=== PATIENT | female | born 1980 | race Caucasian/White ===

== ENCOUNTER 2019-12-26 10:30 | Outpatient (CLI) | payer OTHER, SELFPAY ==
--- NOTE | 2019-12-26 10:30 | MM_ITS ---
WS: [id number] BILATERAL SCREENING DIGITAL MAMMOGRAM WITH CAD HISTORY: screening COMPARISON: None available. Bilateral CC and MLO views submitted. Computer aided detection analyzed. Breast composition: The breasts are heterogeneously dense, which may obscure small masses. No suspici ous masses, microcalcifications or architectural distortion. Benign calcifications in each breast. MM/[place] [id number] IMPRESSION: BI-RADS: 2-Benign FOLLOW UP: 1 Year Follow-up
== END 2019-12-26 10:31 | disposition home or self-care (01) ==
LOC: RADSHAW 10:33
PROVIDERS: PCP Family Medicine; Visit Provider Obstetrics & Gynecology
DX: Z12.31 Encounter for screening mammogram for malignant neoplasm of breast (principal)
CPT/HCPCS: 77067

== ENCOUNTER 2021-02-06 07:55 | Outpatient (CLI) | payer OTHER, SELFPAY ==
--- NOTE | 2021-02-06 08:00 | MM_ITS ---
WS: [id number] Bilateral screening digital mammogram, 02/06/2021 Clinical Data: Z12.39 - Encounter for other screening for malignant neop... Comparison: 12/26/2019. Findings: The breast parenchymal pattern shows heterogeneous density No spiculated masses or clustered calcific ations are seen. There are no secondary signs of carcinoma. MM/[place] [id number] Impression: 1. Negative bilateral mammogram unchanged. 2. Recommend annual screening mammograms. BIRADS: 1-Negative FOLLOW UP: 1 Year Follow-up The CAD pattern checker was used.
== END 2021-02-06 07:56 | disposition home or self-care (01) ==
LOC: RADSHAW 07:58
PROVIDERS: PCP Family Medicine; Visit Provider Obstetrics & Gynecology
DX: Z12.31 Encounter for screening mammogram for malignant neoplasm of breast (principal)
CPT/HCPCS: 77067

== ENCOUNTER 2022-03-25 15:00 | Outpatient (CLI) | payer OTHER, SELFPAY ==
--- NOTE | 2022-03-25 15:14 | MM_ITS ---
WS: [email or web address] BILATERAL 3D TOMOSYNTHESIS DIGITAL SCREENING MAMMOGRAPHY WITH CAD CLINICAL INFORMATION: Z12.39 - Encounter for other screening for malignant neop... HISTORY: Screening mammogram. No current complaints. COMPARISON: February 06, 2021 December 26, 2019 TECHNIQUE: Bilateral CC and MLO views. FINDINGS: The breasts are composed of heterogeneous fibroglandular density tissue, which can limit the detectio n of small underlying mass lesions. A few incidental punctate and lucent centered calcifications. A f ew clustered calcifications inner LEFT breast unchanged. No suspicious mass, asymmetry, calcification s, or architectural distortion. No evidence of malignancy. MM/[place] [id number] IMPRESSION: BI-RADS: 2-Benign FOLLOW UP: 1 Year Follow-up Recommend return to annual screening mammography.
== END 2022-03-25 15:01 | disposition home or self-care (01) ==
PROVIDERS: PCP Family Medicine; Visit Provider Nurse Practitioner Women's Health
DX: Z12.31 Encounter for screening mammogram for malignant neoplasm of breast (principal)
CPT/HCPCS: 77063; 77067

== ENCOUNTER → 2022-08-05 08:19 | Outpatient (BNVA) | payer OTHER, SELFPAY | PROVIDERS: PCP Family Medicine; Visit Provider Family Medicine | DX: R10.13 Epigastric pain (principal) | CPT/HCPCS: 80053; 83690; 85025 ==

== ENCOUNTER → 2022-10-28 13:52 | Outpatient (BNVA) | payer OTHER, SELFPAY | PROVIDERS: PCP Family Medicine; Visit Provider Family Medicine | DX: R10.13 Epigastric pain (principal) | CPT/HCPCS: 86003; 86008 ==

== ENCOUNTER 2023-02-21 09:48 | Outpatient (CLI) | payer OTHER, SELFPAY ==
--- NOTE | 2023-02-21 10:00 | NM_ITS ---
WS: [email or web address] NUCLEAR MEDICINE HIDA SCAN WITH GALLBLADDER EJECTION FRACTION HISTORY: gb dysfunction COMPARISON: 04/26/2011, gallbladder ultrasound 04/21/2011 TECHNIQUE: The patient was intravenously injected with 7.6 mCi of TC99m Mebrofenin. Immediate imaging over the right upper quadrant was followed by 5 minute image and additional images for a total of 60 minutes. Normal uptake of radiotracer throughout the liver. Activity identified in the gallbladder at 40 minutes and well distended by 60 minutes. Activity in the proximal small bowel was seen by 15 minutes. Good washout of the radiotracer from the liver by 60 minutes. The patient then drank 8 ounces of Ensure Plus. Ejection fraction at 60 minutes was 63%. Normal GB ej ection fraction is 35-75%. Post fatty meal symptoms: None. IMPRESSION: 1. Normal HIDA scan. 2. Normal gallbladder ejection fraction.
== END 2023-02-21 09:49 | disposition home or self-care (01) ==
PROVIDERS: PCP Family Medicine; Visit Provider Family Medicine
DX: K82.8 Other specified diseases of gallbladder (principal); R10.13 Epigastric pain
CPT/HCPCS: 78227; A9537

== ENCOUNTER 2023-05-05 07:49 | Outpatient (CLI) | payer OTHER, SELFPAY ==
--- NOTE | 2023-05-05 07:54 | MM_ITS ---
WS: [email or web address] BILATERAL SCREENING DIGITAL TOMOSYNTHESIS MAMMOGRAM WITH CAD HISTORY: Z12.39 - Encounter for other screening for malignant neop... COMPARISON: 12/26/2019, 02/06/2021, 03/25/2022 Bilateral CC and MLO views with tomosynthesis and synthetic mammography submitted. Computer aided det ection analyzed. Breast composition: The breasts are extremely dense, which lowers the sensitivity of mammography. No suspicious masses, microcalcifications or architectural distortion. Reidentified are bilateral partia lly obscured masses within each breast. There are numerous masses which are well-circumscribed as vis ualized. Due to number and multiplicity these are probably benign cysts. IMPRESSION: MM/[place] [id number] BI-RADS: 2-Benign FOLLOW UP: 1 Year Follow-up
== END 2023-05-05 07:50 | disposition home or self-care (01) ==
PROVIDERS: PCP Family Medicine; Visit Provider Nurse Practitioner Women's Health
DX: Z12.31 Encounter for screening mammogram for malignant neoplasm of breast (principal); R92.30 Dense breasts, unspecified; N63.20 Unspecified lump in the left breast, unspecified quadrant; N63.10 Unspecified lump in the right breast, unspecified quadrant
CPT/HCPCS: 77063; 77067

== ENCOUNTER 2023-11-17 11:45 | Outpatient (CLI) | payer OTHER, SELFPAY ==
--- NOTE | 2023-11-17 12:00 | MM_ITS ---
WS: [email or web address] BILATERAL 3D TOMOSYNTHESIS DIGITAL DIAGNOSTIC MAMMOGRAPHY WITH CAD CLINICAL INFORMATION: N63.10 - Unspecified lump in the right breast, unspecifie... HISTORY: RIGHT breast lump COMPARISON: 05/05/2023 TECHNIQUE: Bilateral CC, MLO, and ML views. FINDINGS: The breasts are composed of heterogeneous nodular fibroglandular density, which can limit the detecti on of small underlying mass lesions. Deep to the palpable marker RIGHT breast is a partially obscured nodule measuring approximately 3.8 cm. This is present on prior examinations but slightly increased in size today. Ultrasound of this area is pending. Multiple partially obscured nodules LEFT breast similar to the prior examinations. These most like re present large cyst but ultrasound will be performed in further evaluation. No prior ultrasound compar bubba. ULTRASOUND BREAST BILATERAL TECHNIQUE: Ultrasound bilateral breast focused area of concern. CLINICAL INFORMATION: N63.10 - Unspecified lump in the right breast, unspecifie... FINDINGS: RIGHT BREAST: Ultrasound RIGHT breast area of concern demonstrates a simple appearing cyst in the are a of concern. Lobulated cyst measures approximately 7.2 x 2.4 cm with a small amount of internal debr is 9 o'clock position 3 cm from the nipple. Smaller simple cyst measuring 3.7 x 3.9 cm 1 cm from the nipple near the marker. Additional tiny cyst 3 cm from the nipple measuring 8 mm Additional incidental dilated ducts compatible with ductal ectasia also visualized. LEFT BREAST: Ultrasound subareolar LEFT breast demonstrates ductal ectasia and benign cysts. .Lobula ruth cysts retroareolar largest measuring 3.2 x 2.2 x 3.0 cm with a small amount of internal debris. D ilated retroareolar ducts with internal debris compatible with ductal ectasia. Findings have a benign appearance. MM/[place] [id number] IMPRESSION: BI-RADS: 2-Benign FOLLOW UP: 1 Year Follow-up
--- NOTE | 2023-11-17 12:45 | US_ITS ---
WS: [email or web address] BILATERAL 3D TOMOSYNTHESIS DIGITAL DIAGNOSTIC MAMMOGRAPHY WITH CAD CLINICAL INFORMATION: N63.10 - Unspecified lump in the right breast, unspecifie... HISTORY: RIGHT breast lump COMPARISON: 05/05/2023 TECHNIQUE: Bilateral CC, MLO, and ML views. FINDINGS: The breasts are composed of heterogeneous nodular fibroglandular density, which can limit the detecti on of small underlying mass lesions. Deep to the palpable marker RIGHT breast is a partially obscured nodule measuring approximately 3.8 cm. This is present on prior examinations but slightly increased in size today. Ultrasound of this area is pending. Multiple partially obscured nodules LEFT breast similar to the prior examinations. These most like re present large cyst but ultrasound will be performed in further evaluation. No prior ultrasound compar bubba. ULTRASOUND BREAST BILATERAL TECHNIQUE: Ultrasound bilateral breast focused area of concern. CLINICAL INFORMATION: N63.10 - Unspecified lump in the right breast, unspecifie... FINDINGS: RIGHT BREAST: Ultrasound RIGHT breast area of concern demonstrates a simple appearing cyst in the are a of concern. Lobulated cyst measures approximately 7.2 x 2.4 cm with a small amount of internal debr is 9 o'clock position 3 cm from the nipple. Smaller simple cyst measuring 3.7 x 3.9 cm 1 cm from the nipple near the marker. Additional tiny cyst 3 cm from the nipple measuring 8 mm Additional incidental dilated ducts compatible with ductal ectasia also visualized. LEFT BREAST: Ultrasound subareolar LEFT breast demonstrates ductal ectasia and benign cysts. .Lobula ruth cysts retroareolar largest measuring 3.2 x 2.2 x 3.0 cm with a small amount of internal debris. D ilated retroareolar ducts with internal debris compatible with ductal ectasia. Findings have a benign appearance. US/US breast BI limited* [id number] IMPRESSION: BI-RADS: 2-Benign FOLLOW UP: 1 Year Follow-up
== END 2023-11-17 11:46 | disposition home or self-care (01) ==
LOC: RAD 11:48
PROVIDERS: PCP Family Medicine; Visit Provider Nurse Practitioner Women's Health
DX: N63.10 Unspecified lump in the right breast, unspecified quadrant (principal); R92.333 Mammographic heterogeneous density, bilateral breasts; N63.11 Unspecified lump in the right breast, upper outer quadrant; N60.42 Mammary duct ectasia of left breast; N60.12 Diffuse cystic mastopathy of left breast
CPT/HCPCS: 76642; 77062; G0279

== ENCOUNTER → 2024-03-28 16:06 | Outpatient (BNVA) | payer OTHER, SELFPAY | PROVIDERS: PCP Family Medicine; Visit Provider Nurse Practitioner Women's Health | DX: R53.83 Other fatigue (principal); Z00.00 Encounter for general adult medical examination without abnormal findings | CPT/HCPCS: 80053; 82306; 82607; 82728; 82746; 83036; 84439; 84443; 85025; 87624 ==

== ENCOUNTER → 2024-09-14 08:42 | Outpatient (BNVA) | payer OTHER, SELFPAY | PROVIDERS: PCP Family Medicine; Visit Provider Family Medicine | DX: Z00.00 Encounter for general adult medical examination without abnormal findings (principal) | CPT/HCPCS: 80053; 82306; 83690 ==

== ENCOUNTER 2024-09-19 07:08 | Outpatient (CLI) | payer OTHER, SELFPAY ==
--- NOTE | 2024-09-19 07:15 | US_ITS ---
WS: [email or web address] RIGHT UPPER QUADRANT ULTRASOUND HISTORY: abd pain COMPARISON: 04/21/2011 Liver: 14.0 cm in length. Normal size liver and echogenicity. No bile duct dilatation or mass. Portal Vein: Normal hepatopetal flow with monophasic waveform. Gallbladder: Well-distended gallbladder with numerous stones. Large amount of shadowing from the gallbladder. Stone burden has increased since the prior exam. No wall thickening or pericholecystic fluid. CBD: 0.3 cm Pancreas: Normal size and echogenicity. Right kidney: 9.7 cm in length. Normal size and echogenicity. No hydronephrosis or mass. Aorta and IVC: Unremarkable abdominal aorta and IVC. No ascites. US/US gall bladder [id number] IMPRESSION: 1. Cholelithiasis without acute cholecystitis. Numerous stones within the gall bladder. Stone burden has increased since 2012. 2. No hepatobiliary duct dilatation.
== END 2024-09-19 07:09 | disposition home or self-care (01) ==
PROVIDERS: PCP Family Medicine; Visit Provider Family Medicine
DX: R10.13 Epigastric pain (principal); K80.20 Calculus of gallbladder without cholecystitis without obstruction
CPT/HCPCS: 76705

== ENCOUNTER → 2024-10-14 15:25 | Outpatient (BNVA) | payer OTHER, SELFPAY | PROVIDERS: PCP Family Medicine; Visit Provider Nurse Practitioner | DX: R50.9 Fever, unspecified (principal); R09.89 Other specified symptoms and signs involving the circulatory and respiratory systems | CPT/HCPCS: 87071; 87426; 87880 ==

== ENCOUNTER 2024-12-03 13:43 | Outpatient (CLI) | payer OTHER, SELFPAY ==
--- NOTE | 2024-12-03 14:00 | MM_ITS ---
WS: [email or web address] BILATERAL 3D TOMOSYNTHESIS DIGITAL DIAGNOSTIC MAMMOGRAPHY WITH CAD CLINICAL INFORMATION: N63.20 - Unspecified lump in the left breast, unspecified... HISTORY: LEFT breast lump COMPARISON: 2023 TECHNIQUE: Bilateral CC, MLO, and ML views. FINDINGS: The breasts are composed of heterogeneous fibroglandular density, which can limit the detection of small underlying mass lesions. Nodular breast tissue bilaterally similar to previous with multiple partially obscured ovoid nodules previously demonstrated to represent cysts. Palpable marker overlying a partially obscured ovoid nodular lesion measuring 3.2 x 3.6 cm. Ultrasound of this area is pending. ULTRASOUND BREAST LEFT TECHNIQUE: Ultrasound left breast focused area of concern. CLINICAL INFORMATION: N63.20 - Unspecified lump in the left breast, unspecified... FINDINGS: Ultrasound LEFT breast in the area of concern 9 to 11 o'clock position 1 cm from the nipple patient directed. In the area of concern there is a large lobulated complex cyst with internal debris measuring approximately 3.1 x 3.4 x 2.3 cm. This has a benign appearance. If continued patient pain or concern, this could be drained with ultrasound-guided aspiration MM/MM diag tomosynthesis [id number] IMPRESSION: DENSITY: The breasts are heterogeneously dense, which may obscure small masses. BI-RADS: 2 - Benign FOLLOW UP: 1 Year Follow-up Recommend return to annual screening mammography.
--- NOTE | 2024-12-03 14:45 | US_ITS ---
WS: [email or web address] BILATERAL 3D TOMOSYNTHESIS DIGITAL DIAGNOSTIC MAMMOGRAPHY WITH CAD CLINICAL INFORMATION: N63.20 - Unspecified lump in the left breast, unspecified... HISTORY: LEFT breast lump COMPARISON: 2023 TECHNIQUE: Bilateral CC, MLO, and ML views. FINDINGS: The breasts are composed of heterogeneous fibroglandular density, which can limit the detection of small underlying mass lesions. Nodular breast tissue bilaterally similar to previous with multiple partially obscured ovoid nodules previously demonstrated to represent cysts. Palpable marker overlying a partially obscured ovoid nodular lesion measuring 3.2 x 3.6 cm. Ultrasound of this area is pending. ULTRASOUND BREAST LEFT TECHNIQUE: Ultrasound left breast focused area of concern. CLINICAL INFORMATION: N63.20 - Unspecified lump in the left breast, unspecified... FINDINGS: Ultrasound LEFT breast in the area of concern 9 to 11 o'clock position 1 cm from the nipple patient directed. In the area of concern there is a large lobulated complex cyst with internal debris measuring approximately 3.1 x 3.4 x 2.3 cm. This has a benign appearance. If continued patient pain or concern, this could be drained with ultrasound-guided aspiration US/US breast LT limited* [id number] IMPRESSION: DENSITY: The breasts are heterogeneously dense, which may obscure small masses. BI-RADS: 2 - Benign FOLLOW UP: 1 Year Follow-up Recommend return to annual screening mammography.
== END 2024-12-03 13:44 | disposition home or self-care (01) ==
LOC: RAD 13:44
PROVIDERS: PCP Family Medicine; Visit Provider Nurse Practitioner Women's Health
DX: N60.02 Solitary cyst of left breast (principal); R92.333 Mammographic heterogeneous density, bilateral breasts
CPT/HCPCS: 76642; 77062; G0279

== ENCOUNTER → 2025-01-04 09:18 | Outpatient (BNVA) | payer OTHER, SELFPAY | PROVIDERS: PCP Family Medicine; Visit Provider Family Medicine | DX: R30.0 Dysuria (principal) | CPT/HCPCS: 81000; 87077; 87086; 87184 ==

== ENCOUNTER 2025-03-11 05:52 | Day surgery (SDC) | payer OTHER, SELFPAY ==
[2025-03-11] VITALS (10 sets, daily range): BP systolic 104–125; BP diastolic 51–79; PULSE 57–95; RESP 15–20; TEMP 36.1–36.6; O2SAT 97–100; BMI 23.8
[2025-03-11 06:24] LABS: OR HCG Qualitative Urine Negative (Negative)
--- NOTE | 2025-03-11 06:44 | P.HPUD_ITS ---
Surgery/Procedure H&P Update DATE OF PROCEDURE: March 11, 2025 DATE H&P PERFORMED: 03/06/25 H&P UPDATE INFORMATION: I have reviewed H&P completed within last 30 days, I have examined patient prior to procedure, No changes to prior documentation, H&P is in [facility] EMR on date indicated and Risks and benefits of the procedure reviewed PLANNED PROCEDURE: Operation Date: 03/11/25 07:00 Proposed Procedures p Laparoscopic POSSIBLE Open Cholecystectomy 27196 K80.20(Not Applicable) - Ulises Hawkins MD
--- NOTE | 2025-03-11 06:53 | P.ANESASSM_ITS ---
Pre-Anesthetic Assessment Height/Weight: Height 1.7 m Weight 68.946 kg Temp Pulse Resp BP Pulse Ox O2 Del Method 97.6 F 95 16 121/79 100 Room Air 03/11/25 06:10 03/11/25 06:10 03/11/25 06:10 03/11/25 06:10 03/11/25 06:10 03/11/25 06:10 Operation Date: 03/11/25 07:00 Proposed Procedures p Laparoscopic POSSIBLE Open Cholecystectomy 78929 K80.20(Not Applicable) - Ulises Hawkins MD Familial anesthetic complications: None Was Beta Melita taken within 24 hours: N/A Was Clonidine taken within 24 hours: N/A Last intake: Intake Last Liquid Date 03/10/25 Last Liquid Time 23:00 Last Solid Date 03/10/25 Last Solid Time 14:00 Social No alcohol and No tobacco Exam alert, oriented x 3, clear to auscultation bilaterally and regular rate & rhythm Airway Mallampati: Class I GI gallstones Anesthetic Plan ASA status: 2 Anesthesia: General Risk of > 500 ml blood loss (7ml/kg in children): No Other Pertinent Information alpha gal Medications/Allergies Home Medications ?Medication ?Instructions ?Recorded ?Confirmed ?Last Taken ?Type progesterone micronized 100 mg 100 mg PO BEDTIME #90 c aps 11/02/24 03/11/25 03/10/25 21:00 Rx capsule (Prometrium) Allergies Allergy/AdvReac Type Severity Reaction Status Date / Time Alpha-Gal Allergy Severe ADR-Gastrointestinal Verified 03/08/25 09:27 ([id number]-Qkcnz-4,3-Gala Upset clindamycin Allergy ADR-Diarrhe Verified 03/06/25 14:48 a naproxen (From Aleve) AdvReac [id number] Verified 03/06/25 14:48 take ibuprofen Current Medications Generic Name Dose Route Start Last Admin Trade Name Freq PRN Reason Stop Dose Admin Sodium Chloride 1,000 mls @ 30 mls/hr 03/11/25 06:00 03/11/25 06:26 Sodium Chloride 0.9% IV 03/12/25 05:59 30 mls/hr .Q24H AWILDA Administration PFSH Anesthesia Medical History (Updated 03/06/25 @ 15:17 by Ulises Hawkins MD) Allergy to alpha-gal No pertinent past medical history Denies diabetes, asthma, hypertension, seizures, DVT/PE. PMD: Dr. Altman Surgical History S/P wisdom tooth extraction Family History Mother Hyperlipidemia Hypertension TIA (transient ischemic attack) Father Hyperlipidemia Denies family history of Cervical cancer Colon cancer Ovarian cancer Diabetes Heart disease Breast cancer Uterine cancer Thyroid disease Stroke Social History Smoking and tobacco/nicotine status: never used tobacco/nicotine Female Reproductive History Date of last menstrual period: 03/06/25
[2025-03-11] MEDS: ceFAZolin 2,000 mg SDV 2000 MG IVP (07:04)
--- NOTE | 2025-03-11 07:29 | SUR.OPER ---
called and notified him of surgical start.
[2025-03-11] MEDS: lidocaine-epi 1% 20 mL INJ INJECTION (07:53)
[2025-03-11] MEDS: BUPivacaine 0.25% INJ 10 mL INJECTION (07:54)
--- NOTE | 2025-03-11 08:27 | SUR.OPER ---
notified of surgical progress.
--- NOTE | 2025-03-11 09:02 | PM.OP ---
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 Otherwise normal biliary anatomy Procedure done: Laparoscopic cholecystectomy Specimens removed/disposition: gallbladder and contents Surgeon: Ulises Hawkins MD Digital Communications Manager: PHILLIP OR Staff Estimated blood loss: 5 Complications: none apparent Brief History: 44-year-old female who presents with symptoms concerning for symptomatic cholelithiasis, after discussion of risk benefits with side to proceed to the OR for laparoscopic possible open cholecystectomy. Procedure: Patient was brought into the OR, she was placed in a supine position. General anesthesia was given. The abdomen was prepped and draped in the usual sterile fashion. A timeout was conducted. I accessed the abdomen via a 5 mm Optiview port in the left upper quadrant. Initial pneumoperitoneum was obtained and no evidence of visceral injury during entry was noted. At 12 mm trocar was placed in the infraumbilical position under direct visualization. Additional 5 mm trocars were placed in the epigastrium right upper quadrant and right flank under direct visualization. The gallbladder was grasped from the fundus and retracted cephalad, adhesions from the gastrocolic ligament to the gallblader were taken down with electrocautery, I then grasped the infundibulum and retracted in the inferolateral direction exposing the hepatocystic triangle. adhesions from the periduodenal tissue tot he gallblader were taken down bluntlly. The peritoneum anterior to the hepatocystic triangle was opened with electrocautery, I carried this opening in the medial and lateral direction to the edges of the liver and then on the sides of the gallbladder to allow for better exposure. With careful blunt dissection as well as electrocautery I was able to encircle the cystic duct and artery, I also elevated lower third of the gallbladder from the liver bed, thus creating a critical view of safety. The cystic duct and artery were double clipped proximally and single clipped distally and transected. The gallbladder was removed from the liver bed using electrocautery. The gallbladder was retrieved in an Endo Catch bag via the umbilical trocar site. The liver bed and clips were inspected the area was hemostatic, there was no evidence of bile leak the clips appeared to be in good position. The infraumbilical trocar was removed and trocar site was closed with a 0 Vicryl Doc-Tariq suture passer under direct visualization. The epigastrium right upper quadrant right flank trocars were removed under direct visualization, the left upper quadrant trocar was used to evacuate the pneumoperitoneum and subsequently removed. Local anesthesia was infiltrated. Hemostasis was achieved from the trocar sites. The wounds were closed in layers using #3-0 Vicryl for the subcutaneous tissue #4 Monocryl for the skin. At the end of the procedure all counts were correct, the patient tolerated well the procedure was transferred to the PACU in stable condition.
[2025-03-11] MEDS: ondansetron 2 mg/ML SDV 2 mL 4 MG IVP (10:43)
--- NOTE | 2025-03-11 11:20 | ANE.PACU2 ---
Inpatient post-anesthesia follow up: Airway intact: Yes Vital signs: Temperature 98 F Pulse Rate 70 Respiratory Rate 16 Blood Pressure 108/59 Pulse Oximetry 97 Oxygen Delivery Me thod Room Air Oxygen Flow Rate 2 Fraction of Inspir ed Oxygen Hydration adequate: Yes Nausea and vomiting: No Pain level: 6 Mental status: Baseline
== END 2025-03-11 11:20 | disposition home or self-care (01) ==
PROVIDERS: PCP Family Medicine; Visit Provider Surgery
PROC: 0FT44ZZ Resection of Gallbladder, Percutaneous Endoscopic Approach (ICD-10-PCS; CPT 47562; principal; 2025-03-11 07:00)
DX: K80.10 Calculus of gallbladder with chronic cholecystitis without obstruction (principal); Z91.014 Allergy to mammalian meats
CPT/HCPCS: 47562; 81025; 88304; A4216; J0131; J0690; J1100; J1171; J2250; J2371; J2405; J2704; J2710; J3010; J3490; J7030; J9999

== ENCOUNTER → 2025-04-02 17:00 | Outpatient (BNVA) | payer OTHER, SELFPAY | PROVIDERS: PCP Family Medicine; Visit Provider Nurse Practitioner Women's Health | DX: R53.83 Other fatigue (principal); R41.89 Other symptoms and signs involving cognitive functions and awareness | CPT/HCPCS: 82670; 84270; 84403 ==